=== PATIENT | female | born 1990 | race Hispanic/Latino ===

== ENCOUNTER 2017-11-03 13:33 | Emergency (ER) | payer SELFPAY ==
[~2017-11-03] VITALS: Ht 154.9 cm; Wt 70.3 kg
[2017-11-03] MEDS ORDERED: SODIUM CHLORIDE 0.9% 1000ML 1,000 ML IV STA (14:00)
[2017-11-03 14:17] LABS: BASOPHILS % 0.3 % (0.0-1.0); EOSINOPHILS # (AUTO) 0.1 (0.0-0.4); EOSINOPHILS % 0.7 % (0.0-6.0); HEMATOCRIT 37.5 % (34.2-44.1); HEMOGLOBIN 12.9 g/dL (12.0-16.0); LYMPHOCYTES # (AUTO) 2.6 (1.0-3.2); LYMPHOCYTES % 25.7 % (18.0-39.1); MEAN CORPUSCULAR HEMOGLOBIN 32.2 pg (28-32); MEAN CORPUSCULAR HGB CONC 34.4 g/dL (31-35); MEAN CORPUSCULAR VOLUME 93.5 fL (81-99); MONOCYTES # (AUTO) 0.6 (0.2-0.8); MONOCYTES % 6.4 % (4.4-11.3); NEUTROPHILS # (AUTO) 6.6 (2.1-6.9); NEUTROPHILS % 66.6 % (38.7-80.0); PLATELET COUNT 327 x10e3/uL (140-360); RED BLOOD COUNT 4.01 x10e6/uL (3.6-5.1); RED CELL DISTRIBUTION WIDTH 12.8 % (11.7-14.4)
[2017-11-03 14:19] LABS: CLARITY,URINE CLOUDY (CLEAR); COLOR,URINE YELLOW (YELLOW); KETONES,URINE NEGATIVE (NEGATIVE); LEUKOCYTE ESTERASE ,URINE TRACE (NEGATIVE); NITRITE,URINE NEGATIVE (NEGATIVE); PROTEIN,URINE DIPSTICK NEGATIVE (NEGATIVE); URINE UROBILINOGEN 0.2 mg/dL (0.2 - 1)
[2017-11-03 14:20] LABS: BILIRUBIN,URINE NEGATIVE (NEGATIVE); PREGNANCY TEST, URINE POSITIVE (NEGATIVE)
[2017-11-03 14:24] LABS: BACTERIA,URINE MANY /HPF; EPITHELIAL CELLS,URINE MODERATE /LPF
[2017-11-03 14:42] LABS: ALANINE AMINOTRANSFERASE 22 IU/L (0-55); ALBUMIN 3.9 g/dL (3.5-5.0); ALBUMIN/GLOBULIN RATIO 1.1 (0.8-2.0); ALKALINE PHOSPHATASE 62 IU/L (40-150); AMYLASE 89 U/L (25-125); ANION GAP 12.7 mmol/L (8-16); BLOOD UREA NITROGEN 9 mg/dL (7-26); BUN/CREATININE RATIO 14 (6-25); CALCIUM 9.2 mg/dL (8.4-10.2); CARBON DIOXIDE 26 mmol/L (22-29); CHLORIDE 103 mmol/L (98-107); CREATININE, SERUM 0.64 mg/dL (0.57-1.11); EST GLOMERULAR FILTRATION RATE > 60 ML/MIN (60-); GLUCOSE 102 mg/dL (74-118); LIPASE 27 U/L (8-78); POTASSIUM 3.7 mmol/L (3.5-5.1); SODIUM 138 mmol/L (136-145)
[2017-11-03] MEDS ORDERED: CEFTRIAXONE SOD 1 GM VIAL IV STA (14:48)
[2017-11-03 14:49] LABS: HCG,QUANTITATIVE 6057.09 mIU/mL (0-10)
--- NOTE | 2017-11-03 16:41 | Diagnostic Imaging Report ---
EXAM: First Trimester Obstetric Pelvic Ultrasound INDICATION: \S\SUPRAPUBIC PAIN R/O ECTOPIC PREG \S\Y COMPARISON: None TECHNIQUE: Grayscale transverse and sagittal transvaginal images were obtained of the pelvis. CLINICAL HISTORY: 26 year old A0 Last menstrual period: 10/07/2017 Clinical gestational age: 3w6d FINDINGS: Uterus: Orientation: Retroflexed. Size: 10 x 7.4 x 5.9 cm, enlarged Mass: None Cervix: Normal Endometrial stripe is thickened, measuring 2.4 cm. There is a saclike structure within endometrium, measuring 0.9 x 0.5 x 0.7 cm (mean diameter of 0.7 cm, 5w2d). No definite evidence of yolk sac or pole. Right ovary Size: 5.2 x 3 x 3.6 cm Mass/Cyst: 3.7 x 2.9 x 3.7 cm cyst. 2.3 x 2.1 x 2.7 cm complex cyst with septation and debris. Left ovary Size: 2.9 x 2.3 x 2.3 cm Mass/Cyst: 1.7 x 1.8 x 1.5 cm corpus luteum Arterial and venous flow detected in both ovaries. Cul-de-sac: No free fluid IMPRESSION: 1. Saclike structure within thickened endometrium. No definite yolk sac or pole visualized to prove intrauterine . Differentials include early , ectopic , and miscarriage. Early is favored. Recommend correlation with serial beta hCG and short-term follow-up ultrasound. 2. Arterial and venous flow detected in both ovaries, low likelihood of ovarian torsion. 3. 1.8 cm left corpus luteal cyst. 4. 2.3 cm complex right ovarian cyst. Recommend attention on follow-up examination to ensure resolution. Signed by: Dr. Johnny Lou MD on 11/03/2017 4:38 PM
== END 2017-11-03 17:43 | disposition home or self-care (01) ==
LOC: ER 13:33
DX: O26.891 Other specified pregnancy related conditions, first trimester (principal); O21.9 Vomiting of pregnancy, unspecified; R10.2 Pelvic and perineal pain; N30.90 Cystitis, unspecified without hematuria
CPT/HCPCS: 36415; 76817; 80053; 81001; 81025; 82150; 83690; 84702; 85025; 86850; 86900; 93976; 99284; J0696; J7030